=== PATIENT | female | born 1940 | race Two or more races ===

== ENCOUNTER 2020-10-19 19:16 | Emergency (ER) | payer OTHER ==
[~2020-10-19] VITALS: Ht 144.8 cm; Wt 77.1 kg
== END 2020-10-20 01:08 | disposition home or self-care (01) ==
LOC: ER 19:16
DX: R42 Dizziness and giddiness (principal); R53.1 Weakness; Z03.818 Encounter for observation for suspected exposure to other biological agents ruled out; R53.81 Other malaise

== ENCOUNTER 2021-08-30 11:59 | Emergency (ER) | payer OTHER ==
[~2021-08-30] VITALS: Ht 149.9 cm; Wt 73.9 kg
[2021-08-30] MEDS ORDERED: CHILDREN'S ASPI81 MG PO (12:31)
[2021-08-30] MEDS ORDERED: TAMOXIFEN CITRA20 MG PO (12:31)
[2021-08-30] MEDS ORDERED: DIOVAN160 M1 PO (12:31)
[2021-08-30] MEDS ORDERED: PROTONIX40 M1 PO (12:31)
[2021-08-30] MEDS ORDERED: GLUMETZA500 MG PO (12:31)
[2021-08-30] MEDS ORDERED: TIROSINT88 MCG PO (12:32)
== END 2021-08-30 16:16 | disposition home or self-care (01) ==
LOC: ER 11:59
DX: M54.2 Cervicalgia (principal); M25.512 Pain in left shoulder